=== PATIENT | female | born 1940 | race Caucasian/White ===

== ENCOUNTER 2018-01-29 12:41 | Inpatient (IN) ==
[2018-01-29] MEDS ORDERED: Acetaminophen 325 MG Tablet PO PRN (18:18)
--- NOTE | 2018-01-29 22:53 | P.HPIM ---
History of Present Illness Service: [facility] Hospitalists . Primary Care Physician: UNKNOWN Chief Complaint: Loss of vision in left eye History of Present Illness: Ms. Flores is a 77 y/o patient with a history of coronary artery disease, anxiety, atrial fibrillation, chronic obstructive pulmonary disease, chronic pain, congestive heart failure and carotid artery disease status post left carotid endarterectomy by Dr. Marin and Dr. Stoner in 2003 who presented to the ER complaining of left visual field loss. She was found to have left ICA occlusion and the case was discussed between the ER doctor and Dr. Morfin with vascular surgery who recommended admission to [facility] under the hospitalist service. The patient is seen in her hospital room. She reports only being able to see shadows with her left eye for 4 days. She reports that she was planning to see her last waxer as an outpatient about this but decided that she could not wait and went to the emergency room instead. She denies any headaches, eye pain , floaters, discharge from the eye, erythema, or edema. She has had no recent trauma to the eye. She has no unilateral weakness, dysphasia, or speech problems. She denies any recent fever, chills, nausea, vomiting, or diarrhea. The patient was requesting her narcotics and her nurse called me. I verified them on Eforcse and recognized the name of the prescribing physician as Arturo Gonzales MD, a hospice physician with [facility]. I contacted [facility] and verified that she is indeed a hospice patient who is on their service for advanced cardiovascular disease. They will be following up with her tomorrow. Inpatient Certification: I certify that the inpatient services were ordered in accordance with Medicare regulations governing the order. This includes certification that hospital inpatient services are reasonable and necessary and in the case of services not specified as inpatient-only under 42 CFR 419.22(n), that they are appropriately provided as inpatient services in accordance to with the 2-midnight benchmark under 43 CFR 412.3(e) Estimated Total Length of Stay (Days): 3 Plans for Post Hospital Care: Home Review of Systems All other systems reviewed negative except as stated in HPI [facility] - History History Provided By: Patient - Medical History Medical History: Medical History (Last Updated 01/30/18 @ 01:16 by ABENA Martinez) Advanced cardiac disease Atrial fibrillation Chronic obstructive pulmonary disease Coronary artery disease Anxiety Chronic pain Congestive heart failure - Surgical History Surgical History: Surgical History (Last Updated 01/30/18 @ 04:07 by ABENA Martinez) History of hysterectomy Onset Date: ~1988 History of left-sided carotid endarterectomy Onset Date: ~10/10/03 History of open heart surgery Onset Date: ~02/26/03 Hx of heart artery stent - Family History Family History: Family History (Last Updated 01/30/18 @ 04:10 by ABENA Martinez) Other No significant family history - Tobacco History Second Hand Smoke Exposure: Yes Tobacco Use In Past 30 Days: Yes Smoking Status: Current every day smoker Tobacco Type: Cigarettes - Alcohol History How Often Do You Have a Drink Containing Alcohol: Never - Substance Use History Substance History: No History of Abuse - Immunization History Hx Influenza Vaccine This Season: No Medications and Allergies Active Medications: Active Medications Acetaminophen (Tylenol) 650 mg PO Q4H PRN PRN Reason: Temp > 100.4 Al Hydroxide/Mg Hydroxide (Milk Of Nik Liq) 30 ml PO Q12H PRN PRN Reason: Mild Constipation Ondansetron HCl (Zofran Inj) 4 mg IV.PUSH Q6H PRN PRN Reason: NAUSEA OR VOMITING Allergies Allergy/AdvReac Type Severity Reaction Status Date / Time No Known Allergies Allergy Verified 01/29/18 13:05 Home Medications Medication Instructions Recorded Confirmed Type acetaminophen [Tylenol] 650 mg PO DIRECTED 01/29/18 01/29/18 History albuterol sulfate 1.25 mg INHALATION Q4-6H PRN 01/29/18 01/29/18 History aspirin [Aspir-81] 81 mg PO DAILY 01/29/18 01/29/18 History dextromethorphan-quinidine PO Q4HR PRN 01/29/18 History furosemide [Lasix] 20 mg PO DAILY 01/29/18 01/29/18 History gabapentin 300 mg PO BID 01/29/18 01/30/18 History ipratropium-albuterol 1 INHALATION Q8HR PRN 01/29/18 History lorazepam 1 mg PO Q2HR PRN 01/29/18 01/29/18 History mirtazapine 15 mg PO HS 01/29/18 01/29/18 History morphine 10 mg PO Q1-2H PRN 01/29/18 01/29/18 History nitroglycerin [Nitro-Dur] 1 patch TRANSDERMAL Q12H 01/29/18 01/29/18 History omeprazole 20 mg PO DAILY 01/29/18 01/29/18 History oxycodone 10 mg PO Q6H PRN 01/29/18 01/29/18 History potassium chloride 10 meq PO DAILY 01/29/18 01/29/18 History risperidone 0.5 mg PO HS 01/29/18 01/29/18 History Exam Vital signs: Intake & Output 01/29/18 01/29/18 01/30/18 06:59 18:59 06:59 Weight 41.2 kg Other: Weight On Admission 41.2 kg Narrative: GENERAL: This is a cachectic elderly female patient, in no apparent distress. SKIN: No rashes, ecchymoses or lesions. Cool and dry. HEAD: Atraumatic. Normocephalic. EYES: No scleral icterus. No injection or drainage. EOMI. Pupils equal and reactive to light. ENT: Nose without bleeding, purulent drainage. NECK: Trachea midline. No JVD. CARDIOVASCULAR: Regular rate and rhythm without murmurs, gallops, or rubs. RESPIRATORY: Clear to auscultation. Breath sounds equal bilaterally. No wheezes , rales, or rhonchi. GASTROINTESTINAL: Abdomen soft, non-tender, nondistended. No guarding. MUSCULOSKELETAL: Extremities without clubbing, cyanosis, or edema. No calf tenderness. NEUROLOGICAL: Awake and alert. Motor and sensory grossly within normal limits. Normal speech. . Caprini VTE Risk Assessment Caprini VTE Risk Assessment: Moderate/High Risk (score >= 2) Caprini Risk Assessment Model: Point Value = 1 Point Value = 2 Point Value = 3 Point Value = 5 Age 41-60 Minor surgery BMI > 25 kg/m2 Swollen legs Varicose veins or History of unexplained or recurrent spontaneous Oral contraceptives or hormone replacement Sepsis (< 1 month) Serious lung disease, including pneumonia (< 1 month) Abnormal pulmonary function Acute myocardial infarction Congestive heart failure (< 1 month) History of inflammatory bowel disease Medical patient at bed rest Age 61-74 Arthroscopic surgery Major open surgery (> 45 min) Laparoscopic surgery (> 45 min) Malignancy Confined to bed (> 72 hours) Immobilizing plaster cast Central venous access Age >= 75 History of VTE Family history of VTE Factor V Leiden Prothrombin 52502C Lupus anticoagulant Anticardiolipin antibodies Elevated serum homocysteine Heparin-induced thrombocytopenia Other congenital or acquired thrombophilia Stroke (< 1 month) Elective arthroplasty Hip, pelvis, or leg fracture Acute spinal cord injury (< 1 month) Prophylaxis Regimen: Total Risk Factor Score Risk Level Prophylaxis Regimen 0-1 Low Early ambulation 2 Moderate Order ONE of the following: *Sequential Compression Device (SCD) *Heparin 5000 units SQ BID 3-4 Higher Order ONE of the following medications: *Heparin 5000 units SQ TID *Enoxaparin/Lovenox 40 mg SQ daily (WT < 150 kg, CrCl > 30 mL/min) *Enoxaparin/Lovenox 30 mg SQ daily (WT < 150 kg, CrCl > 10-29 mL/min) *Enoxaparin/Lovenox 30 mg SQ BID (WT < 150 kg, CrCl > 30 mL/min) AND/OR *Sequential Compression Device (SCD) 5 or more Highest Order ONE of the following medications: *Heparin 5000 units SQ TID (Preferred with Epidurals) *Enoxaparin/Lovenox 40 mg SQ daily (WT < 150 kg, CrCl > 30 mL/min) *Enoxaparin/Lovenox 30 mg SQ daily (WT < 150 kg, CrCl > 10-29 mL/min) *Enoxaparin/Lovenox 30 mg SQ BID (WT < 150 kg, CrCl > 30 mL/min) AND *Sequential Compression Device (SCD) Assessment and Plan - Plan Ms. Flores is a 77 y/o patient with a history of coronary artery disease, anxiety, atrial fibrillation, chronic obstructive pulmonary disease, chronic pain, congestive heart failure and carotid artery disease status post left carotid endarterectomy by Dr. Marin and Dr. Stoner in 2003 who presented to the ER complaining of left visual field loss. She was found to have left ICA occlusion and the case was discussed between the ER doctor and Dr. Morfin with vascular surgery who recommended admission to [facility] under the hospitalist service. Left eye visual impairment with concern for CVA -symptoms have been ongoing for 4 days -Consult neurology -appreciate assistance -Perform nerve frequent neurochecks -2D echocardiogram -MRI of head to r/o infarct -check 2D echocardiogram to asses cardiac structure and function -Continuous cardiac telemetry to monitor for arrhythmia -Consider ophthalmology consult if MRI is negative Left carotid artery disease -Patient had a left carotid endarterectomy in 2003 with a bovine patch performed by Dr. Marin and Dr. Stoner -Neck CTA showed heavily calcified aortic arch with occlusion of the left common carotid and left subclavian origins. There was at least moderate to severe stenosis of the right brachiocephalic origin secondary to bulky calcified plaque. -Consult vascular surgery - case was reviewed by ER doctor with vascular surgeon Dr. Morfin who recommended admission - appreciate assistance CAD history of CHF -Patient on hospice for advanced heart disease -[facility] contacted and will follow up with the patient tomorrow -PRN nitroglycerin and resume home nitro patch -patient unsure of her EF Chronic pain -Resume home oxycodone -verify dosage and frequency the [place] drug monitoring program E-forcse Anxiety -Continue home lorazepam but at the lower as needed dose (0.5 mg) Incidental finding of thyroid nodules -may follow up with an composing room machinist apprentice as an outpatient if desires DVT prophylaxis -SCDs Code Status: DNR - patient confirms desire for DNR code status with me Discussed Condition With: Patient, RN, and Dr. Brooks H&P: Quality - VTE Deep Vein Thrombosis/Pulmonary Embolism Present on Admission: No
[2018-01-29] MEDS: LORazepam 0.5 MG Tablet PO PRN (23:09)
[2018-01-30] MEDS ORDERED: Bisacodyl 10 MG Supp RECTAL PRN (01:11)
[2018-01-30] MEDS ORDERED: guaiFENesin/Dextromethorphan 200 MG/20 MG 10 ML UDC PO PRN (01:12)
[2018-01-30] MEDS: LORazepam 0.5 MG Tablet PO PRN ×2 (08:46→21:21)
[2018-01-30] MEDS: Pantoprazole Sodium 20 MG DR Tablet PO SCH (08:46)
[2018-01-30] MEDS: Potassium Chloride 10 MEQ ER Capsule PO SCH (08:47)
[2018-01-30] MEDS: Gabapentin 300 MG Capsule PO SCH ×2 (08:47→21:21)
[2018-01-30] MEDS: Furosemide 20 MG Tablet PO SCH (08:47)
[2018-01-30 12:12] LABS: Vitamin B12 599 pg/mL (193-986)
--- NOTE | 2018-01-30 12:57 | P.PNIM ---
Subjective Interval history: Follow up left eye vision loss Patient is sitting up in bed. She denies any upper or lower extremity weakness/ numbness/tingling. She states she can only see shadows out of her left eye. No speech or swallow difficulty. MRI brain currently pending. Physical Exam Vital signs: Last Vital Signs Temp 98 F 01/30/18 08:00 Pulse 66 01/30/18 08:00 Resp 16 01/30/18 08:00 BP 128/72 01/30/18 08:00 Pulse Ox 96 01/30/18 08:00 Intake & Output 01/28/18 01/29/18 01/30/18 01/31/18 06:59 06:59 06:59 06:59 Intake Total 450 / 450 Balance 450 / 450 Weight 42.7 kg Narrative: GENERAL: This is a cachectic elderly female patient, in no apparent distress. SKIN: No rashes, ecchymoses or lesions. Cool and dry. HEAD: Atraumatic. Normocephalic. EYES: No scleral icterus. No injection or drainage. EOMI. Pupils equal and reactive to light. ENT: Nose without bleeding, purulent drainage. NECK: Trachea midline. No JVD. CARDIOVASCULAR: Regular rate and rhythm without murmurs, gallops, or rubs. RESPIRATORY: Clear to auscultation. Breath sounds equal bilaterally. No wheezes , rales, or rhonchi. GASTROINTESTINAL: Abdomen soft, non-tender, nondistended. No guarding. MUSCULOSKELETAL: Extremities without clubbing, cyanosis, or edema. No calf tenderness. NEUROLOGICAL: Awake and alert. Motor and sensory grossly within normal limits. Normal speech. . Assessment and Plan Plan Ms. Flores is a 77 y/o patient with a history of coronary artery disease, anxiety, atrial fibrillation, chronic obstructive pulmonary disease, chronic pain, congestive heart failure and carotid artery disease status post left carotid endarterectomy by Dr. Marin and Dr. Stoner in 2003 who presented to the ER complaining of left visual field loss. She was found to have left ICA occlusion and the case was discussed between the ER doctor and Dr. Morfin with vascular surgery who recommended admission to [facility] under the hospitalist service. Left eye visual impairment with concern for CVA - evaluated 01/30/18, unchanged -symptoms have been ongoing for 4 days -Neurology consulted-appreciate assistance -Perform nerve frequent neurochecks -MRI of head to r/o infarct -check 2D echocardiogram to asses cardiac structure and function -Continuous cardiac telemetry to monitor for arrhythmia -Consider ophthalmology consult if MRI is negative, MRI head pending -CT head -> senescent changes w/o acute intracranial abnormality Left carotid artery disease - evaluated 01/30/18 -Patient had a left carotid endarterectomy in 2003 with a bovine patch performed by Dr. Marin and Dr. Stoner -Neck CTA showed heavily calcified aortic arch with occlusion of the left common carotid and left subclavian origins. There was at least moderate to severe stenosis of the right brachiocephalic origin secondary to bulky calcified plaque. -Consult vascular surgery - case was reviewed by ER doctor with vascular surgeon Dr. Morfin who recommended admission - appreciate assistance CAD History of CHF, unknown dysfunction or EF - evaluated 01/30/18, no acute exacerbation at present time -Patient on hospice for advanced heart disease -[facility] contacted and will follow up with the patient -PRN nitroglycerin and resume home nitro patch -patient unsure of her EF Chronic pain - evaluated 01/30/18, stable -Resume home oxycodone -verify dosage and frequency the [place] drug monitoring program E-forcse Anxiety - 01/30/18, stable -Continue home lorazepam but at the lower as needed dose (0.5 mg) Incidental finding of thyroid nodules -may follow up with an log data technician as an outpatient if desires MDM: self Code: DNR GI ppx: PPI DVT ppx: Eliquis BID Progress Note: Quality VTE Deep Vein Thrombosis/Pulmonary Embolism Present on Admission: No
--- NOTE | 2018-01-30 13:32 | P.CONVS ---
History of Present Illness Service: Vascular surgery Consult date: 01/30/18 Primary Care Provider: UNKNOWN Chief Complaint: Loss of vision in left eye History of Present Illness: 77-year-old female with a past medical history of left carotid artery stenosis status post left carotid artery endarterectomy who presents with a chief complaint of left eye blurry vision. I was contacted by the emergency room physician who was concerned for left eye amaurosis fugax and a possible TIA versus acute stroke. It was also unclear if the patient is a hospice patient or not. The patient currently denies any vision loss. She denies any episodes of amaurosis fugax. She denies any TIA symptoms. Review of Systems All other systems reviewed negative except as stated in HPI [facility] - History History Provided By: Patient - Medical History Medical History: Medical History (Last Updated 01/30/18 @ 04:17 by ABENA Martinez) Atrial fibrillation Chronic obstructive pulmonary disease Coronary artery disease Anxiety Chronic pain Congestive heart failure - Surgical History Surgical History: Surgical History (Last Updated 01/30/18 @ 04:07 by ABENA Martinez) History of hysterectomy Onset Date: ~1988 History of left-sided carotid endarterectomy Onset Date: ~10/10/03 History of open heart surgery Onset Date: ~02/26/03 Hx of heart artery stent - Family History Family History: Family History (Last Updated 01/30/18 @ 04:10 by ABENA Martinez) Other No significant family history - Tobacco History Second Hand Smoke Exposure: Yes Tobacco Use In Past 30 Days: Yes Smoking Status: Current every day smoker Tobacco Type: Cigarettes - Alcohol History How Often Do You Have a Drink Containing Alcohol: Never - Substance Use History Substance History: No History of Abuse - Immunization History Hx Influenza Vaccine This Season: No Medications and Allergies Active Medications: Active Medications Acetaminophen (Tylenol) 650 mg PO Q4H PRN PRN Reason: Temp > 100.4 Al Hydroxide/Mg Hydroxide (Milk Of Magnesia Liq) 30 ml PO Q12H PRN PRN Reason: Mild Constipation Albuterol (Duoneb Neb (Prn)) 1 ampul NEB Q2HR NEB PRN PRN Reason: SHORTNESS OF BREATH/WHEEZING Apixaban (Eliquis) 2.5 mg PO BID [facility] Last Admin: 01/30/18 12:47 Dose: 2.5 mg Aspirin (Ecotrin) 81 mg PO DAILY [facility] Last Admin: 01/30/18 08:53 Dose: 81 mg Bisacodyl (Dulcolax Supp) 10 mg RECTAL DAILY PRN PRN Reason: severe constipation Furosemide (Lasix) 20 mg PO DAILY [facility] Last Admin: 01/30/18 08:47 Dose: 20 mg Gabapentin (Neurontin) 300 mg PO BID [facility] Last Admin: 01/30/18 08:47 Dose: 300 mg Guaifenesin/Dextromethorphan (Robitussin Dm Liq) 10 ml PO Q4H PRN PRN Reason: COUGH Lorazepam (Ativan) 0.5 mg PO Q4H PRN PRN Reason: ANXIETY Last Admin: 01/30/18 08:46 Dose: 0.5 mg Mirtazapine (Remeron) 15 mg PO [facility] Nitroglycerin (Nitro-Dur 0.4 Mg Patch.24 Hr) 1 patch T-DERMAL DAILY [facility] Last Admin: 01/30/18 08:53 Dose: 1 patch Nitroglycerin (Nitrostat Sl) 0.4 mg SL Q5M PRN PRN Reason: CHEST PAIN Ondansetron HCl (Zofran Inj) 4 mg IV.PUSH Q6H PRN PRN Reason: NAUSEA OR VOMITING Oxycodone HCl (Roxicodone) 10 mg PO Q6H PRN PRN Reason: PAIN SCALE 1 TO 10 Last Admin: 01/29/18 23:09 Dose: 10 mg Pantoprazole Sodium (Protonix) 20 mg PO DAILY [facility] Last Admin: 01/30/18 08:46 Dose: 20 mg Potassium Chloride (Kcl) 10 meq PO DAILY [facility] Last Admin: 01/30/18 08:47 Dose: 10 meq Risperidone (Risperdal) 0.5 mg PO [facility] Allergies Allergy/AdvReac Type Severity Reaction Status Date / Time No Known Allergies Allergy Verified 01/29/18 13:05 Home Medications Medication Instructions Recorded Confirmed Type acetaminophen [Tylenol] 650 mg PO DIRECTED 01/29/18 01/29/18 History albuterol sulfate 1.25 mg INHALATION Q4-6H PRN 01/29/18 01/29/18 History aspirin [Aspir-81] 81 mg PO DAILY 01/29/18 01/29/18 History dextromethorphan-quinidine PO Q4HR PRN 01/29/18 History furosemide [Lasix] 20 mg PO DAILY 01/29/18 01/29/18 History gabapentin 300 mg PO BID 01/29/18 01/30/18 History ipratropium-albuterol 1 INHALATION Q8HR PRN 01/29/18 History lorazepam 1 mg PO Q2HR PRN 01/29/18 01/29/18 History mirtazapine 15 mg PO HS 01/29/18 01/29/18 History morphine 10 mg PO Q1-2H PRN 01/29/18 01/29/18 History nitroglycerin [Nitro-Dur] 1 patch TRANSDERMAL Q12H 01/29/18 01/29/18 History omeprazole 20 mg PO DAILY 01/29/18 01/29/18 History oxycodone 10 mg PO Q6H PRN 01/29/18 01/29/18 History potassium chloride 10 meq PO DAILY 01/29/18 01/29/18 History risperidone 0.5 mg PO HS 01/29/18 01/29/18 History Physical Exam Vital Signs / I&O: Vital Signs 01/29/18 19:30 01/29/18 23:50 01/30/18 00:00 Temperature 98.5 F 97.8 F Pulse Rate 68 66 Respiratory Rate 18 18 15 Blood Pressure 133/70 97/63 L Pulse Oximetry 95 95 01/30/18 04:00 01/30/18 08:00 Temperature 97.6 F 98 F Pulse Rate 78 66 Respiratory Rate 18 16 Blood Pressure 102/57 L 128/72 Pulse Oximetry 94 L 96 Intake & Output 01/29/18 01/30/18 01/30/18 18:59 06:59 18:59 Intake Total 450 / 450 Balance 450 / 450 Weight 42.7 kg Intake: Oral 450 / 450 Other: # Voids 1 Weight On Admission 41.2 kg Neuro: No neurological deficits identified bilaterally. Cranial nerves X to XII are intact. HEENT: Normocephalic atraumatic Neck: Supple Heart: S1-S2 Lungs: Clear bilaterally Abdomen: Soft nontender nondistended Vascular: Left radial, ulnar biphasic signal Laboratory Results - last 24 hr 01/30/18 01/30/18 01/30/18 11:09 11:09 11:09 ESR 45 H C-Reactive Protein 1.48 H Vitamin B12 599 Rheumatoid Factor Scrn Negative Rheumatoid Factor Titer Not Reportable Assessment and Plan - Plan Left common carotid artery occlusion Questionable left carotid stump syndrome The patient clinical presentation is not consistent with amaurosis fugax. Ophthalmology evaluation is pending. workup for acute ischemic stroke and neurological evaluation is pending We will obtain a carotid duplex ultrasound to evaluate the direction of blood flow in the ICA (antegrade versus retrograde) Left subclavian artery occlusion Asymptomatic No vascular surgery is required at this time I has been confirmed confirmed that the patient is a hospice patient due to cardiac disease. Most likely she will not tolerate any vascular procedure if indicated. Thank you for allowing me to participate in the patient care, if you have any questions please call my cell phone Sourav Morfin MD [facility] [phone]
--- NOTE | 2018-01-30 13:50 | MB ---
cc: Caleb Carrizales MD DATE: 01/30/2018 HISTORY OF PRESENT ILLNESS: A 77-year-old, right-handed woman with hypertension, CABG, on a baby aspirin a day. She is apparently on hospice for cardiovascular disease. She has a history of carotid endarterectomy. About 4 days ago, she had vision loss in the left eye. She denies any dementia. She has had carotid stents in the past. She said she has had a mild headache only. No temporal tenderness. MEDICATIONS AT HOME: 1. Tylenol. 2. Aspirin 81. 3. Lasix. 4. Gabapentin 200 at bedtime. 5. Lorazepam 1 mg p.r.n. 6. Mirtazapine. 7. Morphine p.r.n. 8. Nitroglycerin. 9. Omeprazole. 10. Oxycodone p.r.n. 11. Risperdal 0.25 at bedtime. ALLERGIES: NO KNOWN DRUG ALLERGIES. REVIEW OF SYSTEMS: She denies any diabetes, hypercholesterolemia, known atrial fibrillation, although apparently has a history of atrial fibrillation. No history of renal, hepatic, pulmonary disease, thyroid disease, lupus, ulcer, cancer, seizure, stroke. SOCIAL HISTORY: She is a smoker. I have asked her to quit. She is not a drinker. She lives by herself, she tells me. FAMILY HISTORY: Negative cancer, seizure, stroke. PAST MEDICAL HISTORY: Atrial fibrillation, COPD, anxiety, CHF, left carotid endarterectomy in 2003. PHYSICAL EXAMINATION: VITAL SIGNS: Sinus rhythm, afebrile, 102/57, 18, 78. NECK: There are no carotid bruits. HEART: Regular rate and rhythm. I did not detect a murmur. NEUROLOGIC: She can just see shadows in the left eye. She appears to have cataracts bilaterally. Both pupils are equal. Visual [place] are full, right eye. Extraocular movements intact without nystagmus. Temples are nontender bilaterally. Face is symmetric with normal sensation. Tongue is midline. No drift. Normal strength in the upper and lower extremities bilaterally. Toes are downgoing bilaterally. DTRs are 2+ and symmetric throughout. Pinprick is intact throughout. She is not ataxic on [id number]. Speech is fluent. She is not aphasic. She knows the month and the year. She knows she is in the hospital. Gait is steady. LABORATORY DATA: CBC is normal. Coags normal. Basic metabolic profile, creatinine 1.1, otherwise normal. Glucose 107. LFTs normal. CPK and troponin negative. She has a history of a UTI in 2017. IMAGING DATA: She had a CAT scan of her brain done that was read as negative. On review of those films, some white matter changes bifrontally. Nothing in the occipital lobes is seen. Orbits appear normal. CTA of the pauma of [place] was performed, a 6 mm right supraclinoid aneurysm, small left internal carotid artery, probably from retrograde flow due to common carotid artery occlusion. On review of the films, she has good flow in the middle cerebral and anterior cerebral arteries bilaterally and the posterior cerebral arteries and the vertebral basilar system. It looks like she does have some flow in the carotid on the left side somehow reconstituted with absent flow in the neck on the CTA of the neck. The CTA of the neck reports occlusion of the left common carotid artery and left subclavian origins, moderate to severe stenosis of the right brachiocephalic, reconstitution of the left carotid and the left carotid bulb via contralateral retrograde flow, reconstitution of proximal left subclavian via a small left vertebral. Internal carotids themselves are normal. Left-sided thyroid nodules. 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 Whether the left common carotid artery is acutely occluded or not is unclear. Certainly, with the atrial fibrillation, I would recommend her being on Eliquis. We will check a sedimentation rate on her. With the vision loss, I would recommend having her be seen by ophthalmology to make sure she does not have any glaucoma or severe cataract in that eye as there appears to be some cataracts. An echocardiogram has been done. She actually looks quite well for hospice and very highly functioning. We will check an MRI of her brain and just a couple of blood tests. MD TYREL Carcamo/sathish , 10:39 AM , 10:47 AM
--- NOTE | 2018-01-30 14:45 | MR ---
EXAM DATE: 01/30/2018 2:40 PM EST AGE/SEX: 77 years / Female INDICATIONS: . Vision problems. Amarousis fugax. CLINICAL DATA: This is the patient's initial encounter. Patient reports that signs and symptoms have been present for 2 days and indicates a pain score of 0/10. MEDICAL/SURGICAL HISTORY: Chronic obstructive pulmonary disease. Congestive heart failure. Kira ve replacement. Afib. Carotid endarterectomy. CABG. COMPARISON: DL, CT HEAD W/O CONTRAST, 01/29/2018. . TECHNIQUE: Multiplanar, multisequence examination of the brain was performed without contrast. FINDINGS: Cerebrum: Mild to moderate diffuse cerebral atrophy. The ventricles are normal for age. No evidence of midline shift, mass lesion, hemorrhage or acute infarction. No extraaxial fluid collections are seen. The pituitary gland and suprasellar cistern are normal in configuration. White Matter: Moderate periventricular and focal deep white matter T2 prolongation. Posterior Fossa: The cerebellum and brainstem are intact. The 4th ventricle is midline. The cerebel lopontine angle is unremarkable. The cerebellar tonsils are normal in position. Diffusion Imaging: No focal areas of restricted diffusion are seen. No evidence of acute infarction . Extracranial: The visualized portions of the orbits and paranasal sinuses are unremarkable. CONCLUSION: 1. Senescent changes with mild to moderate periventricular ischemic white matter demyelination. 2. No acute abnormality. Specifically, no evidence for acute infarction or hemorrhage. Electronically signed by: José Miguel Parks MD 01/30/2018 2:43 PM EST
--- NOTE | 2018-01-30 15:10 | ECHRPT ---
Indication: [email or web address] CONCLUSIONS Normal left ventricular size. Wall thickness is normal. The left ventricular systolic function is normal with an estimated ejection fraction in the range of 60-65%. Bovine valve mitral valve. Mean gradient 13 mmhg.Aortic valve sclerosis is present. There is mild tricuspid valve regurgitation. The estimated pulmonary arterial pressure is 34 mmHg. BP: / HR: Rhythm: MEASUREMENTS (Male / Female) Normal Values Technical Quality: 2D ECHO LV Diastolic Diameter PLAX 3.3 cm 4.2 - 5.9 / 3.9 - 5.3 cm LV Systolic Diameter PLAX 2.3 cm IVS Diastolic Thickness 1.2 cm 0.6 - 1.0 / 0.6 - 0.9 cm LVPW Diastolic Thickness 1.1 cm 0.6 - 1.0 / 0.6 - 0.9 cm LV Relative Wall Thickness 0.7 RV Internal Dim ED PLAX 2.7 cm LVOT Diameter 1.5 cm Aortic Root Diameter 2.0 cm LA Systolic Diameter LX 4.3 cm 3.0 - 4.0 / 2.7 - 3.8 cm LV Ejection Fraction MOD BP 57.3 % >= 55 % LV Ejection Fraction MOD 4C 61.1 % LV Ejection Fraction 4C AL 59.2 % LV Ejection Fraction MOD 2C 53.5 % LV Ejection Fraction 2C AL 51.8 % M-MODE Aortic Root Diameter MM 1.9 cm LA Systolic Diameter MM 3.7 cm LA Ao Ratio MM 1.9 AV Cusp Separation MM 1.3 cm DOPPLER AV Peak Velocity 228.3 cm/s AV Peak Gradient 20.9 mmHg AV Mean Gradient 11.0 mmHg AV Velocity Time Integral 44.3 cm LVOT Peak Velocity 102.0 cm/s LVOT Peak Gradient 4.2 mmHg LVOT Velocity Time Integral 21.8 cm AV Area Cont Eq vti 0.9 cm AV Area Cont Eq pk 0.8 cm MV Peak Velocity 159.0 cm/s MV Peak Gradient 10.1 mmHg MV Mean Velocity 96.8 cm/s MV Mean Gradient 4.0 mmHg Mitral E Point Velocity 108.0 cm/s Mitral A Point Velocity 130.0 cm/s Mitral E to A Ratio 0.8 LV E' Lateral Velocity 4.4 cm/s Mitral E to LV E' Lateral Ratio 24.6 LV E' Septal Velocity 7.9 cm/s Mitral E to LV E' Septal Ratio 13.7 TR Peak Velocity 242.0 cm/s TR Peak Gradient 23.4 mmHg Right Atrial Pressure 10.0 mmHg Pulmonary Artery Systolic Pressu 33.4 mmHg Right Ventricular Systolic Press 33.4 mmHg PV Peak Velocity 119.0 cm/s PV Peak Gradient 5.7 mmHg FINDINGS LEFT VENTRICLE Normal left ventricular size. Wall thickness is normal. The left ventricular systolic function is normal with an estimated ejection fraction in the range of 60-65%. RIGHT VENTRICLE Normal right ventricular size and systolic function. LEFT ATRIUM The left atrial size is normal. RIGHT ATRIUM The right atrial size is normal. ATRIAL SEPTUM Normal atrial septal thickness without atrial level shunting by limited color doppler interrogation. AORTA The aortic root and proximal ascending aorta are normal in size on limited imaging. MITRAL VALVE Bovine valve mitral valve. Mean gradient 4 mmhg. AORTIC VALVE Aortic valve sclerosis is present. TRICUSPID VALVE There is mild tricuspid valve regurgitation. The estimated pulmonary arterial pressure is 34 mmHg. PULMONARY VALVE No pulmonary valve regurgitation or stenosis. VESSELS The inferior vena cava is normal in size. PERICARDIUM No pericardial effusion. Francis Donis MD, FACC, FSCAI (Electronically Signed) Final Date:30 January 2018 15:08
--- NOTE | 2018-01-30 17:11 | US ---
EXAM DATE: 01/30/2018 5:06 PM EST AGE/SEX: 77 years / Female INDICATIONS: Common carotid artery occlusion seen on other imaging. CLINICAL DATA: This is the patient's initial encounter. Patient reports that signs and symptoms have been present for > 1 year and indicates a pain score of 0/10. MEDICAL/SURGICAL HISTORY: Chronic obstructive pulmonary disease. Congestive heart failure. Atr ial fibrillation. Coronary artery disease. Hysterectomy. Left side carotid surgery. Open heart surge ry. Heart artery stent. COMPARISON: [facility], CTA NECK W CONTRAST W 3D, 01/29/2018. . VELOCITY PARAMETERS: ICA/CCA Ratio: Right 1.4 , Left 3.6 ICA: Right 116 cm/sec, Left 34 cm/sec CCA: Right 82 cm/sec, Left 9.3 cm/sec ECA: Right 124 cm/sec, Left 52 cm/sec Vertebral: Right 152 cm/sec antegrade, Left 29 cm/sec retrograde FINDINGS: Right Carotid: Bulky noncalcified plaque..The waveforms are within normal limits. Left Carotid: Common carotid artery is occluded with reversal of flow in the internal carotid artery . Bulky mixed plaque. The waveforms are within normal limits. Other: None. CONCLUSION: 1. Right Internal Carotid Artery: Findings indicate <50% stenosis. 2. Left Internal Carotid Artery: Common carotid artery is occluded with retrograde flow in the inter nal carotid artery. Findings indicate <50% stenosis. 3. Reversal of flow in the left vertebral artery consistent with occlusion of the left subclavian ar krupa origin noted on CT exam. Electronically signed by: José Miguel Parks MD 01/30/2018 5:10 PM EST
[2018-01-30] MEDS: Mirtazapine 15 MG Tablet PO SCH (21:21)
[2018-01-31 05:07] LABS: Baso # (Auto) 0.1 th/mm3 (0.0-0.2); Baso % (Auto) 0.7 % (0.0-2.0); Eos # (Auto) 0.4 th/mm3 (0.0-0.4); Eos % (Auto) 3.1 % (0.0-4.0); Hematocrit 38.6 % (35.0-46.0); Lymph # (Auto) 2.3 th/mm3 (1.0-4.8); Lymph % (Auto) 17.8 % (9.0-44.0); Mean Corpuscular HGB Conc 33.6 % (32.0-36.0); Mean Corpuscular Hemoglobin 29.5 pg (27.0-34.0); Mean Corpuscular Volume 87.9 fL (80.0-100.0); Mean Platelet Volume 7.5 fL (7.0-11.0); Mono % (Auto) 7.6 % (0.0-8.0); Neut # (Auto) 9.1 th/mm3 (1.8-7.7); Neut % (Auto) 70.8 % (16.0-70.0); Platelet Count 304 th/mm3 (150-450); Red Cell Distribution Width 14.9 % (11.6-17.2); White Blood Count 12.8 th/mm3 (4.0-11.0)
[2018-01-31 05:34] LABS: Calcium 8.3 mg/dL (8.5-10.1); Carbon Dioxide 31.1 meq/L (21.0-32.0); Potassium 4.1 meq/L (3.5-5.1)
[2018-01-31 05:36] LABS: Chol/HDL Ratio 6.14 Ratio; HDL Cholesterol 41.5 mg/dL (40.0-60.0)
--- NOTE | 2018-01-31 08:17 | P.PNNEU ---
Subjective Active Medications: Active Medications Acetaminophen (Tylenol) 650 mg PO Q4H PRN PRN Reason: Temp > 100.4 Al Hydroxide/Mg Hydroxide (Milk Of Magnesia Liq) 30 ml PO Q12H PRN PRN Reason: Mild Constipation Albuterol (Duoneb Neb (Prn)) 1 ampul NEB Q2HR NEB PRN PRN Reason: SHORTNESS OF BREATH/WHEEZING Apixaban (Eliquis) 2.5 mg PO BID [facility] Last Admin: 01/30/18 21:21 Dose: 2.5 mg Aspirin (Ecotrin) 81 mg PO DAILY [facility] Last Admin: 01/30/18 08:53 Dose: 81 mg Bisacodyl (Dulcolax Supp) 10 mg RECTAL DAILY PRN PRN Reason: severe constipation Furosemide (Lasix) 20 mg PO DAILY [facility] Last Admin: 01/30/18 08:47 Dose: 20 mg Gabapentin (Neurontin) 300 mg PO BID [facility] Last Admin: 01/30/18 21:21 Dose: 300 mg Guaifenesin/Dextromethorphan (Robitussin Dm Liq) 10 ml PO Q4H PRN PRN Reason: COUGH Lorazepam (Ativan) 0.5 mg PO Q4H PRN PRN Reason: ANXIETY Last Admin: 01/30/18 21:21 Dose: 0.5 mg Mirtazapine (Remeron) 15 mg PO HS [facility] Last Admin: 01/30/18 21:21 Dose: 15 mg Nitroglycerin (Nitro-Dur 0.4 Mg Patch.24 Hr) 1 patch T-DERMAL DAILY [facility] Last Admin: 01/30/18 08:53 Dose: 1 patch Nitroglycerin (Nitrostat Sl) 0.4 mg SL Q5M PRN PRN Reason: CHEST PAIN Ondansetron HCl (Zofran Inj) 4 mg IV.PUSH Q6H PRN PRN Reason: NAUSEA OR VOMITING Oxycodone HCl (Roxicodone) 10 mg PO Q6H PRN PRN Reason: PAIN SCALE 1 TO 10 Last Admin: 01/30/18 15:37 Dose: 10 mg Pantoprazole Sodium (Protonix) 20 mg PO DAILY [facility] Last Admin: 01/30/18 08:46 Dose: 20 mg Potassium Chloride (Kcl) 10 meq PO DAILY [facility] Last Admin: 01/30/18 08:47 Dose: 10 meq Risperidone (Risperdal) 0.5 mg PO HS [facility] Last Admin: 01/30/18 21:21 Dose: 0.5 mg Allergies/Adverse Reactions: Allergies Allergy/AdvReac Type Severity Reaction Status Date / Time No Known Allergies Allergy Verified 01/29/18 13:05 Physical Exam Vital signs: Vital Signs 01/30/18 12:00 01/30/18 16:00 01/30/18 20:00 Temperature 98.4 F 98 F 97.8 F Pulse Rate 72 70 79 Respiratory Rate 18 16 17 Blood Pressure 122/67 133/82 102/59 L Pulse Oximetry 98 95 95 01/31/18 00:00 01/31/18 04:00 Temperature 97.9 F 98.1 F Pulse Rate 65 62 Respiratory Rate 17 17 Blood Pressure 100/58 L 123/67 Pulse Oximetry 94 L 95 Intake & Output 01/30/18 01/31/18 01/31/18 18:59 06:59 18:59 Weight 41.8 kg Other: # Voids 4 # Urine Diapers 3 Date of Last Bowel Movement 01/30/18 Narrative: can see shadows os counts fingers od ow nl exam Objective Laboratory Results - last 24 hr 01/30/18 01/30/18 01/30/18 11:09 11:09 11:09 WBC RBC Hgb Hct MCV MCH MCHC RDW Plt Count MPV Neut % (Auto) Lymph % (Auto) [place] % (Auto) Eos % (Auto) Baso % (Auto) Neut # (Auto) Lymph # (Auto) [place] # (Auto) Eos # (Auto) Baso # (Auto) WBC Differential Differential Comment ESR 45 H Sodium Potassium Chloride Carbon Dioxide Anion Gap BUN Creatinine Estimated GFR Random Glucose Calcium C-Reactive Protein 1.48 H Triglycerides Cholesterol LDL Cholesterol, Calc HDL Cholesterol Cholesterol/HDL Ratio Vitamin B12 599 Rheumatoid Factor Scrn Negative Rheumatoid Factor Titer Not Reportable 01/31/18 01/31/18 04:30 04:30 WBC 12.8 H RBC 4.40 Hgb 13.0 Hct 38.6 MCV 87.9 MCH 29.5 MCHC 33.6 RDW 14.9 Plt Count 304 MPV 7.5 Neut % (Auto) 70.8 H Lymph % (Auto) 17.8 [place] % (Auto) 7.6 Eos % (Auto) 3.1 Baso % (Auto) 0.7 Neut # (Auto) 9.1 H Lymph # (Auto) 2.3 [place] # (Auto) 1.0 H Eos # (Auto) 0.4 Baso # (Auto) 0.1 WBC Differential . Differential Comment Auto diff final ESR Sodium 137 Potassium 4.1 D Chloride 101 Carbon Dioxide 31.1 Anion Gap 5 BUN 24 H Creatinine 1.32 H Estimated GFR 39 L Random Glucose 85 Calcium 8.3 L C-Reactive Protein Triglycerides 149 Cholesterol 255 H LDL Cholesterol, Calc 184 H HDL Cholesterol 41.5 Cholesterol/HDL Ratio 6.14 Vitamin B12 Rheumatoid Factor Scrn Rheumatoid Factor Titer Review/Management - Review/Management Plan: imp esr 45 but crp only min elevated ldl 184 mri brain neg echo bovine MV on eliquis 2.5 for wt if med team thinks can tolerate 5mg bid i would have them change to that can dc when optho clears needs statin started
[2018-01-31] MEDS: Potassium Chloride 10 MEQ ER Capsule PO SCH (09:10)
[2018-01-31] MEDS: Furosemide 20 MG Tablet PO SCH (09:10)
[2018-01-31] MEDS: Gabapentin 300 MG Capsule PO SCH ×2 (09:10→21:36)
[2018-01-31] MEDS: Pantoprazole Sodium 20 MG DR Tablet PO SCH (09:10)
[2018-01-31 11:19] LABS: Anti-Nuclear Antibody Screen Pos (Neg)
[2018-01-31] MEDS: LORazepam 0.5 MG Tablet PO PRN ×2 (11:21→21:36)
--- NOTE | 2018-01-31 11:31 | P.PN ---
Subjective Interval history: Follow-up visit for left eye vision loss, and carotid stenosis. Patient seen ambulating in her room and in the alas, requesting to go home. She does report that her left eye vision has improved and is now able to see. She does report that the right eye has now been giving her trouble as it has been having to "make up for the other eye". Denies any dizziness, lightheadedness, shortness of breath, cough, chest pain, fevers or chills. Staff report patient has been smoking in her room, offered nicotine patch which she is agreeable to try. Discussed ophthalmology consult as well as recommendations of Pierre per neurology. Physical Exam Vital signs: Vital Signs 01/30/18 12:00 01/30/18 16:00 01/30/18 20:00 Temperature 98.4 F 98 F 97.8 F Pulse Rate 72 70 79 Respiratory Rate 18 16 17 Blood Pressure 122/67 133/82 102/59 L Pulse Oximetry 98 95 95 01/31/18 00:00 01/31/18 04:00 01/31/18 10:00 Temperature 97.9 F 98.1 F 97.6 F Pulse Rate 65 62 79 Respiratory Rate 17 17 16 Blood Pressure 100/58 L 123/67 130/90 Pulse Oximetry 94 L 95 95 Intake & Output 01/30/18 01/31/18 01/31/18 18:59 06:59 18:59 Weight 41.8 kg Other: # Voids 4 # Urine Diapers 3 Date of Last Bowel Movement 01/30/18 Narrative: GENERAL: Thin, well-developed female in no acute distress. SKIN: Cool and dry. HEAD: Atraumatic. Normocephalic. EYES: No scleral icterus. No injection or drainage. Pupils equal/round and reactive. ENT: Nose without bleeding, purulent drainage. NECK: Trachea midline. CARDIOVASCULAR: Regular rate and rhythm without murmurs, gallops, or rubs. RESPIRATORY: Clear to auscultation. Breath sounds equal bilaterally. No wheezes , rales, or rhonchi. GASTROINTESTINAL: Abdomen soft, non-tender, nondistended. MUSCULOSKELETAL: Extremities without clubbing, cyanosis, or edema. NEUROLOGICAL: Awake and alert. Motor and sensory grossly within normal limits. Normal speech. Results - Labs CBC & Chem 7: 01/31/18 04:30 01/31/18 04:30 Laboratory Results - last 24 hr 01/30/18 01/30/18 01/30/18 11:09 11:09 11:09 WBC RBC Hgb Hct MCV MCH MCHC RDW Plt Count MPV Neut % (Auto) Lymph % (Auto) [place] % (Auto) Eos % (Auto) Baso % (Auto) Neut # (Auto) Lymph # (Auto) [place] # (Auto) Eos # (Auto) Baso # (Auto) WBC Differential Differential Comment ESR 45 H Sodium Potassium Chloride Carbon Dioxide Anion Gap BUN Creatinine Estimated GFR Random Glucose Calcium C-Reactive Protein Triglycerides Cholesterol LDL Cholesterol, Calc HDL Cholesterol Cholesterol/HDL Ratio Vitamin B12 599 Rheumatoid Factor Scrn Negative Rheumatoid Factor Titer Not Reportable ARGENIS Screen Pos H RPR Nonreactive 01/30/18 01/31/18 01/31/18 11:09 04:30 04:30 WBC 12.8 H RBC 4.40 Hgb 13.0 Hct 38.6 MCV 87.9 MCH 29.5 MCHC 33.6 RDW 14.9 Plt Count 304 MPV 7.5 Neut % (Auto) 70.8 H Lymph % (Auto) 17.8 [place] % (Auto) 7.6 Eos % (Auto) 3.1 Baso % (Auto) 0.7 Neut # (Auto) 9.1 H Lymph # (Auto) 2.3 [place] # (Auto) 1.0 H Eos # (Auto) 0.4 Baso # (Auto) 0.1 WBC Differential . Differential Comment Auto diff final ESR Sodium 137 Potassium 4.1 D Chloride 101 Carbon Dioxide 31.1 Anion Gap 5 BUN 24 H Creatinine 1.32 H Estimated GFR 39 L Random Glucose 85 Calcium 8.3 L C-Reactive Protein 1.48 H Triglycerides 149 Cholesterol 255 H LDL Cholesterol, Calc 184 H HDL Cholesterol 41.5 Cholesterol/HDL Ratio 6.14 Vitamin B12 Rheumatoid Factor Scrn Rheumatoid Factor Titer ARGENIS Screen RPR - Imaging Impressions Carotid Doppler Study 01/30/18 00:00 CONCLUSION: 1. Right Internal Carotid Artery: Findings indicate <50% stenosis. 2. Left Internal Carotid Artery: Common carotid artery is occluded with retrograde flow in the internal carotid artery. Findings indicate <50% stenosis. 3. Reversal of flow in the left vertebral artery consistent with occlusion of the left subclavian artery origin noted on CT exam. Head MRI 01/30/18 00:00 CONCLUSION: 1. Senescent changes with mild to moderate periventricular ischemic white matter demyelination. 2. No acute abnormality. Specifically, no evidence for acute infarction or hemorrhage. Assessment and Plan - Plan Ms. Flores is a 77 y/o patient with a history of coronary artery disease, anxiety, atrial fibrillation, chronic obstructive pulmonary disease, chronic pain, congestive heart failure and carotid artery disease status post left carotid endarterectomy by Dr. Marin and Dr. Stoner in 2003 who presented to the ER complaining of left visual field loss. She was found to have left ICA occlusion and the case was discussed between the ER doctor and Dr. Morfin with vascular surgery who recommended admission to [facility] under the hospitalist service. Left eye visual impairment with concern for CVA - evaluated 01/30/18, improved -symptoms have been ongoing for 4 days on presentation -Neurology consulted-appreciate assistance. Recommend increasing Eliquis dose if able to tolerate, optho. consult and statin. -Perform nerve frequent neurochecks, eye sight improved -MRI of head with senescent changes with mild to moderate periventricular ischemic white matter demyelination, no acute infarction or hemorrhage. -tele to monitor for arrhythmias -Pending ophthalmology consult. If cleared can be DCed per neuro. -CT head -> senescent changes w/o acute intracranial abnormality -2D echo with EF 60-65%, bovine mitral valve noted Hx a. fib -Neurology has evaluated patient and recommended Eliquis, started at 2.5mg BID -Per dosing recommendations will increase Eliquis to 5 mg twice daily -Patient can have follow-up BMP as outpatient to make sure creatinine does not increase >1.5 Left carotid artery disease - evaluated 01/30/18 -Patient had a left carotid endarterectomy in 2003 with a bovine patch performed by Dr. Marin and Dr. Stoner -Neck CTA showed heavily calcified aortic arch with occlusion of the left common carotid and left subclavian origins. There was at least moderate to severe stenosis of the right brachiocephalic origin secondary to bulky calcified plaque. -Consult vascular surgery consulted, appreciate assistance. No surgical intervention at this time. Cleared for discharge by vascular once cleared by ophthalmology. CAD History of CHF, unknown dysfunction or EF - evaluated 01/30/18, no acute exacerbation at present time -Patient on hospice for advanced heart disease -[facility] contacted and will follow up with the patient -PRN nitroglycerin and resume home nitro patch -patient unsure of her EF Chronic pain - evaluated 01/30/18, stable -continue home oxycodone Anxiety - 01/30/18, stable -Continue home lorazepam but at the lower as needed dose (0.5 mg) Incidental finding of thyroid nodules -may follow up with an shank skinner as an outpatient if desires Tobacco abuse -Discussed with patient that smoking and is not allowed in the hospital. Offered nicotine patch. DVT prophylaxisEliquis Discussed Condition With: Discussed with patient and nursing staff. Discharge Planning: Discharge once cleared by ophthalmology or if okay per neurology to follow-up with ophthalmology as outpatient.
--- NOTE | 2018-01-31 12:49 | P.PNVS ---
Subjective Subjective/Hospital Course: Left eye vision improving Objective Vital Signs / I&O: Vital Signs 01/30/18 16:00 01/30/18 20:00 01/31/18 00:00 Temperature 98 F 97.8 F 97.9 F Pulse Rate 70 79 65 Respiratory Rate 16 17 17 Blood Pressure 133/82 102/59 L 100/58 L Pulse Oximetry 95 95 94 L 01/31/18 04:00 01/31/18 10:00 Temperature 98.1 F 97.6 F Pulse Rate 62 79 Respiratory Rate 17 16 Blood Pressure 123/67 130/90 Pulse Oximetry 95 95 Intake & Output 01/30/18 01/31/18 01/31/18 18:59 06:59 18:59 Weight 41.8 kg Other: # Voids 4 # Urine Diapers 3 Date of Last Bowel Movement 01/30/18 Physical Exam: No neurological deficits Laboratory Results - last 24 hr 01/30/18 01/31/18 01/31/18 11:09 04:30 04:30 WBC 12.8 H RBC 4.40 Hgb 13.0 Hct 38.6 MCV 87.9 MCH 29.5 MCHC 33.6 RDW 14.9 Plt Count 304 MPV 7.5 Neut % (Auto) 70.8 H Lymph % (Auto) 17.8 [place] % (Auto) 7.6 Eos % (Auto) 3.1 Baso % (Auto) 0.7 Neut # (Auto) 9.1 H Lymph # (Auto) 2.3 [place] # (Auto) 1.0 H Eos # (Auto) 0.4 Baso # (Auto) 0.1 WBC Differential . Differential Comment Auto diff final Sodium 137 Potassium 4.1 D Chloride 101 Carbon Dioxide 31.1 Anion Gap 5 BUN 24 H Creatinine 1.32 H Estimated GFR 39 L Random Glucose 85 Calcium 8.3 L Triglycerides 149 Cholesterol 255 H LDL Cholesterol, Calc 184 H HDL Cholesterol 41.5 Cholesterol/HDL Ratio 6.14 ARGENIS Screen Pos H RPR Nonreactive Impressions Carotid Doppler Study 01/30/18 00:00 CONCLUSION: 1. Right Internal Carotid Artery: Findings indicate <50% stenosis. 2. Left Internal Carotid Artery: Common carotid artery is occluded with retrograde flow in the internal carotid artery. Findings indicate <50% stenosis. 3. Reversal of flow in the left vertebral artery consistent with occlusion of the left subclavian artery origin noted on CT exam. Head MRI 01/30/18 00:00 CONCLUSION: 1. Senescent changes with mild to moderate periventricular ischemic white matter demyelination. 2. No acute abnormality. Specifically, no evidence for acute infarction or hemorrhage. Assessment and Plan - Plan Left common carotid artery occlusion Questionable left carotid stump syndrome Duplex ultrasound reviewed, retrograde flow in the left internal carotid artery with minimal stenosis. Doubt carotid stump syndrome. Symptoms atypical for amaurosis fugax, pending ophthalmology eval Clear with discharge from vascular standpoint when cleared by ophthalmology Left subclavian artery occlusion Asymptomatic No vascular surgery is required at this time [facility]fin [facility] [phone]
[2018-01-31] MEDS: Mirtazapine 15 MG Tablet PO SCH (21:36)
[2018-02-01] MEDS: LORazepam 0.5 MG Tablet PO PRN (01:08)
--- NOTE | 2018-02-01 07:29 | P.PNNEU ---
Subjective Active Medications: Active Medications Acetaminophen (Tylenol) 650 mg PO Q4H PRN PRN Reason: Temp > 100.4 Al Hydroxide/Mg Hydroxide (Milk Of Magnesia Liq) 30 ml PO Q12H PRN PRN Reason: Mild Constipation Albuterol (Duoneb Neb (Prn)) 1 ampul NEB Q2HR NEB PRN PRN Reason: SHORTNESS OF BREATH/WHEEZING Apixaban (Eliquis) 5 mg PO BID [facility] Last Admin: 01/31/18 21:36 Dose: 5 mg Aspirin (Ecotrin) 81 mg PO DAILY [facility] Last Admin: 01/31/18 09:10 Dose: 81 mg Bisacodyl (Dulcolax Supp) 10 mg RECTAL DAILY PRN PRN Reason: severe constipation Furosemide (Lasix) 20 mg PO DAILY [facility] Last Admin: 01/31/18 09:10 Dose: 20 mg Gabapentin (Neurontin) 300 mg PO BID [facility] Last Admin: 01/31/18 21:36 Dose: 300 mg Guaifenesin/Dextromethorphan (Robitussin Dm Liq) 10 ml PO Q4H PRN PRN Reason: COUGH Lorazepam (Ativan) 0.5 mg PO Q4H PRN PRN Reason: ANXIETY Last Admin: 02/01/18 01:08 Dose: 0.5 mg Mirtazapine (Remeron) 15 mg PO HS [facility] Last Admin: 01/31/18 21:36 Dose: 15 mg Nicotine (Habitrol 21 Mg Patch.24 Hr) 1 patch T-DERMAL DAILY [facility] Last Admin: 01/31/18 12:00 Dose: 1 patch Nitroglycerin (Nitro-Dur 0.4 Mg Patch.24 Hr) 1 patch T-DERMAL DAILY [facility] Last Admin: 01/31/18 09:10 Dose: 1 patch Nitroglycerin (Nitrostat Sl) 0.4 mg SL Q5M PRN PRN Reason: CHEST PAIN Ondansetron HCl (Zofran Inj) 4 mg IV.PUSH Q6H PRN PRN Reason: NAUSEA OR VOMITING Oxycodone HCl (Roxicodone) 10 mg PO Q6H PRN PRN Reason: PAIN SCALE 1 TO 10 Last Admin: 01/30/18 15:37 Dose: 10 mg Pantoprazole Sodium (Protonix) 20 mg PO DAILY [facility] Last Admin: 01/31/18 09:10 Dose: 20 mg Potassium Chloride (Kcl) 10 meq PO DAILY [facility] Last Admin: 01/31/18 09:10 Dose: 10 meq Pravastatin Sodium (Pravachol) 40 mg PO [facility] Last Admin: 01/31/18 21:36 Dose: 40 mg Risperidone (Risperdal) 0.5 mg PO HS [facility] Last Admin: 01/31/18 21:36 Dose: 0.5 mg Allergies/Adverse Reactions: Allergies Allergy/AdvReac Type Severity Reaction Status Date / Time No Known Allergies Allergy Verified 01/29/18 13:05 Physical Exam Vital signs: Vital Signs 01/31/18 10:00 01/31/18 12:00 01/31/18 16:20 Temperature 97.6 F 97.8 F 97.3 F L Pulse Rate 79 81 80 Respiratory Rate 16 16 16 Blood Pressure 130/90 100/70 105/70 Pulse Oximetry 95 96 96 01/31/18 20:00 02/01/18 00:00 02/01/18 04:00 Temperature 97.8 F 98 F 97.4 F L Pulse Rate 73 59 L 69 Respiratory Rate 17 18 18 Blood Pressure 113/69 95/58 L 114/62 Pulse Oximetry 94 L 95 96 Intake & Output 01/31/18 02/01/18 02/01/18 18:59 06:59 18:59 Intake Total 1100 / 1100 480 / 480 Output Total 6 / 6 Balance 1094 / 1094 480 / 480 Weight 41.8 kg Intake: Oral 1100 / 1100 480 / 480 Output: Urine 6 / 6 Other: # Voids 4 Date of Last Bowel Movement 01/30/18 Narrative: a and ox3 nl gait still dec vision os Objective Laboratory Results - last 24 hr 01/30/18 11:09 ARGENIS Screen Pos H RPR Nonreactive Review/Management - Review/Management Plan: imp esr 45 but crp only min elevated ldl 184 mri brain neg echo bovine MV on eliquis 2.5 for wt if med team thinks can tolerate 5mg bid i would have them change to that can dc when optho clears needs statin started 02/01/18 on statin if optho can not see her today in house maybe they can see her in office today if her daughter drives over to their office? on 5 bid eliquis
--- NOTE | 2018-02-01 09:30 | P.DS ---
Date of admission: 01/29/18 19:30 Primary care physician: UNKNOWN Brief History from admission: Ms. Flores is a 77 y/o patient with a history of coronary artery disease, anxiety, atrial fibrillation, chronic obstructive pulmonary disease, chronic pain, congestive heart failure and carotid artery disease status post left carotid endarterectomy by Dr. Marin and Dr. Stoner in 2003 who presented to the ER complaining of left visual field loss. She was found to have left ICA occlusion and the case was discussed between the ER doctor and Dr. Morfin with vascular surgery who recommended admission to [facility] under the hospitalist service. The patient is seen in her hospital room. She reports only being able to see shadows with her left eye for 4 days. She reports that she was planning to see her silk hanger as an outpatient about this but decided that she could not wait and went to the emergency room instead. She denies any headaches, eye pain , floaters, discharge from the eye, erythema, or edema. She has had no recent trauma to the eye. She has no unilateral weakness, dysphasia, or speech problems. She denies any recent fever, chills, nausea, vomiting, or diarrhea. The patient was requesting her narcotics and her nurse called me. I verified them on [employer] and recognized the name of the prescribing physician as Arturo Gonzales MD, a hospice physician with [facility]. I contacted [facility] and verified that she is indeed a hospice patient who is on their service for advanced cardiovascular disease. They will be following up with her tomorrow. DS: Medications - Discharge Medications Prescriptions: apixaban [Eliquis] 5 mg PO BID #60 tab gabapentin [Neurontin] 300 mg PO BID #60 cap pravastatin 40 mg PO HS #30 tab DS: Summary Hospital Course: Ms. Flores is a 77 y/o patient with a history of coronary artery disease, anxiety, atrial fibrillation, chronic obstructive pulmonary disease, chronic pain, congestive heart failure and carotid artery disease status post left carotid endarterectomy by Dr. Marin and Dr. Stoner in 2003 who presented to the ER complaining of left visual field loss. Left eye visual impairment with concern for CVA -symptoms have been ongoing for 4 days on presentation -Neurology consulted-appreciate assistance. Recommend increasing Eliquis dose if able to tolerate, optho. consult and statin. -MRI of head with senescent changes with mild to moderate periventricular ischemic white matter demyelination, no acute infarction or hemorrhage. -No arrhythmias on tele noted -Ophthalmology recommended controlling risk factors, follow up as outpatient in 1 month -CT head -> senescent changes w/o acute intracranial abnormality -2D echo with EF 60-65%, bovine mitral valve noted - Vision improved per patient Hx a. fib -Neurology has evaluated patient and recommended Eliquis 5 mg twice daily -Patient can have follow-up BMP as outpatient to make sure creatinine does not increase >1.5 Left carotid artery disease - evaluated 01/30/18 -Patient had a left carotid endarterectomy in 2003 with a bovine patch performed by Dr. Marin and Dr. Stoner -Neck CTA showed heavily calcified aortic arch with occlusion of the left common carotid and left subclavian origins. There was at least moderate to severe stenosis of the right brachiocephalic origin secondary to bulky calcified plaque. -Consult vascular surgery consulted, appreciate assistance. No surgical intervention at this time. Cleared for discharge by vascular surgery. CAD History of CHF, unknown dysfunction or EF - evaluated 01/30/18, no acute exacerbation at present time -Patient on hospice for advanced heart disease -[facility] contacted and will follow up with the patient -PRN nitroglycerin and resume home nitro patch -patient unsure of her EF Chronic pain - evaluated 01/30/18, stable -continue home oxycodone Anxiety - 01/30/18, stable -Continue home lorazepam but at the lower as needed dose (0.5 mg) Incidental finding of thyroid nodules -may follow up with an manager pathology as an outpatient if desires Patient was seen and examined earlier today ambulating in her room in no acute distress. She reports she has been waiting for ophthalmology for evaluation, discussed discharge home once cleared by ophthalmology. She reports her vision is unchanged compared to yesterday and is now able to see out of the left eye although not exactly clearly. She denies any fevers, chills, nausea, vomiting or diarrhea. She voices no other acute concerns at the moment. Is requesting to go home. - Time Spent with Patient Total time spent providing and/or coordinating discharge services: Less than 30 minutes - Quality: VTE Deep Vein Thrombosis/Pulmonary Embolism Present on Admission: No Exam Vital signs: Vital Signs 01/31/18 10:00 01/31/18 12:00 01/31/18 16:20 Temperature 97.6 F 97.8 F 97.3 F L Pulse Rate 79 81 80 Respiratory Rate 16 16 16 Blood Pressure 130/90 100/70 105/70 Pulse Oximetry 95 96 96 01/31/18 20:00 02/01/18 00:00 02/01/18 04:00 Temperature 97.8 F 98 F 97.4 F L Pulse Rate 73 59 L 69 Respiratory Rate 17 18 18 Blood Pressure 113/69 95/58 L 114/62 Pulse Oximetry 94 L 95 96 02/01/18 08:00 Temperature 98.1 F Pulse Rate 70 Respiratory Rate 18 Blood Pressure 131/76 Pulse Oximetry 96 Intake & Output 01/31/18 02/01/18 02/01/18 18:59 06:59 18:59 Intake Total 1100 / 1100 480 / 480 Output Total / Balance 1094 / 1094 480 / 480 Weight 41.8 kg Intake: Oral 1100 / 1100 480 / 480 Output: Urine Other: # Voids 4 Date of Last Bowel Movement 01/30/18 Narrative: GENERAL: Thin, well-developed female in no acute distress. SKIN: Cool and dry. HEAD: Atraumatic. Normocephalic. EYES: No scleral icterus. No injection or drainage. Pupils equal/round and reactive. ENT: Nose without bleeding, purulent drainage. NECK: Trachea midline. CARDIOVASCULAR: Regular rate and rhythm without murmurs, gallops, or rubs. RESPIRATORY: Clear to auscultation. Breath sounds equal bilaterally. No wheezes , rales, or rhonchi. GASTROINTESTINAL: Abdomen soft, non-tender, nondistended. MUSCULOSKELETAL: Extremities without clubbing, cyanosis, or edema. NEUROLOGICAL: Awake and alert. Motor and sensory grossly within normal limits. Normal speech. Results Procedures completed during hospitalization: None Labs on day of discharge: Labs from last 24 hours 01/30/18 11:09 ARGENIS Screen Pos H ARGENIS Titer Pending ARGENIS Pattern Pending ARGENIS Interpretation Pending RPR Nonreactive - Impressions ITS Impressions Carotid Doppler Study 01/30/18 00:00 CONCLUSION: 1. Right Internal Carotid Artery: Findings indicate <50% stenosis. 2. Left Internal Carotid Artery: Common carotid artery is occluded with retrograde flow in the internal carotid artery. Findings indicate <50% stenosis. 3. Reversal of flow in the left vertebral artery consistent with occlusion of the left subclavian artery origin noted on CT exam. Head MRI 01/30/18 00:00 CONCLUSION: 1. Senescent changes with mild to moderate periventricular ischemic white matter demyelination. 2. No acute abnormality. Specifically, no evidence for acute infarction or hemorrhage. Discharge Plan - Discharge Disposition Patient Disposition: 01 Discharge Home - Discharge Condition Condition: Fair - Discharge Order Discharge Orders: Discharge Order (Routine); Ordered 02/01/18 Ordered By: Noemi Alvarez Vascular Surgery Clear for Discharge (Routine); Ordered 02/01/18 Ordered By: Nisa Paz - Physicians Team Primary Care Provider: UNKNOWN, Attending Provider: Krystin Zendejas Other Providers: Caleb Sharma MD ; Sourav Morfin MD ; Denise Gutierrez MD - Rxs /Orders / Referrals /Forms Prescriptions: New apixaban [Eliquis] 5 mg Tablet 5 mg PO BID Qty: 60 RF: 0 gabapentin [Neurontin] 300 mg Capsule 300 mg PO BID Qty: 60 RF: 0 pravastatin 40 mg Tablet 40 mg PO HS Qty: 30 RF: 0 Continue acetaminophen [Tylenol] 325 mg Capsule 650 mg PO DIRECTED aspirin [Aspir-81] 81 mg Tablet,Delayed Release (Dr/Ec) 81 mg PO DAILY furosemide [Lasix] 20 mg Tablet 20 mg PO DAILY ipratropium-albuterol 0.5 mg-3 mg(2.5 mg base)/3 mL Solution For Nebulization 1 Inhalation Q8HR PRN (Reason: Shortness Of Breath) lorazepam 0.5 mg Tablet 1 mg PO Q2HR PRN (Reason: Pain) mirtazapine 15 mg Tablet 15 mg PO HS nitroglycerin [Nitro-Dur] 0.4 mg/hr Patch 24 Hour 1 patch TRANSDERMAL Q12H omeprazole 20 mg Capsule,Delayed Release(Dr/Ec) 20 mg PO DAILY oxycodone 10 mg Tablet 10 mg PO Q6H PRN (Reason: Pain) potassium chloride 10 mEq Capsule, Extended Release 10 meq PO DAILY risperidone 0.25 mg Tablet 0.5 mg PO HS Discontinued albuterol sulfate 1.25 mg/3 mL Solution For Nebulization 1.25 mg INHALATION Q4-6H PRN (Reason: Shortness Of Breath) dextromethorphan-quinidine 10 mL PO Q4HR PRN (Reason: Cough) gabapentin 100 mg Capsule 300 mg PO BID morphine 10 mg Capsule,Extend.Release Pellets 10 mg PO Q1-2H PRN (Reason: Pain) Ambulatory Orders / Order Sets / DME: Basic Metabolic Panel (Routine) Timeframe: 1 Week Location: Determined by Patient Ordered By: Noemi Alvarez Referrals: Denise Gutierrez MD [Physician] - 03/03/18 UNKNOWN, [Primary Care Provider] - See Instructions - Discharge Instructions Patient Printed Instructions: Pravastatin (By mouth), Gabapentin (By mouth), Apixaban (By mouth), Blurred Vision (ED), Eye Pain (GEN)
[2018-02-01] MEDS: Furosemide 20 MG Tablet PO SCH (09:41)
[2018-02-01] MEDS: Gabapentin 300 MG Capsule PO SCH (09:41)
[2018-02-01] MEDS: Pantoprazole Sodium 20 MG DR Tablet PO SCH (09:41)
[2018-02-01 12:26] VITALS: BP 108/55; PULSE 73; RESP 17; TEMP 97.8; O2SAT 95
--- NOTE | 2018-02-01 13:05 | P.CON ---
History of Present Illness Service: Ophthalmology Reason for Consult: left eye vision loss Primary Care Provider: UNKNOWN Chief Complaint: Loss of vision in left eye History of Present Illness: 77 y/o patient with a history of coronary artery disease, atrial fibrillation, chronic obstructive pulmonary disease, congestive heart failure and carotid artery disease status post left carotid endarterectomy by Dr. Marin and Dr. Stoner in 2003 who presented to the ER complaining of left eye vision loss on . She denies any headaches, eye pain, floaters, flashes. ROS for GCA negative. MRI brain - normal. Carotid US <50% stenosis bilateral - vascular recommends no surgery at this time. Echo -> normal left ventricular systolic function with EF 60-65%. Patient denies any significant ocular history. No change in her vision since last week. [facility] - History History Provided By: Patient - Medical History Medical History: Medical History (Last Updated 01/30/18 @ 04:17 by ABENA Martinez) Atrial fibrillation Chronic obstructive pulmonary disease Coronary artery disease Anxiety Chronic pain Congestive heart failure - Surgical History Surgical History: Surgical History (Last Updated 01/30/18 @ 04:07 by ABENA Martinez) History of hysterectomy Onset Date: ~1988 History of left-sided carotid endarterectomy Onset Date: ~10/10/03 History of open heart surgery Onset Date: ~02/26/03 Hx of heart artery stent - Family History Family History: Family History (Last Updated 01/30/18 @ 04:10 by ABENA Martinez) Other No significant family history - Tobacco History Second Hand Smoke Exposure: Yes Tobacco Use In Past 30 Days: Yes Smoking Status: Current every day smoker Tobacco Type: Cigarettes - Alcohol History How Often Do You Have a Drink Containing Alcohol: Never - Substance Use History Substance History: No History of Abuse - Immunization History Hx Influenza Vaccine This Season: No Medications and Allergies Active Medications: Active Medications Acetaminophen (Tylenol) 650 mg PO Q4H PRN PRN Reason: Temp > 100.4 Al Hydroxide/Mg Hydroxide (Milk Of Nik Liwaldo) 30 ml PO Q12H PRN PRN Reason: Mild Constipation Albuterol (Duoneb Neb (Prn)) 1 ampul NEB Q2HR NEB PRN PRN Reason: SHORTNESS OF BREATH/WHEEZING Apixaban (Eliquis) 5 mg PO BID [facility] Last Admin: 02/01/18 09:41 Dose: 5 mg Aspirin (Ecotrin) 81 mg PO DAILY [facility] Last Admin: 02/01/18 09:41 Dose: 81 mg Bisacodyl (Dulcolax Supp) 10 mg RECTAL DAILY PRN PRN Reason: severe constipation Furosemide (Lasix) 20 mg PO DAILY [facility] Last Admin: 02/01/18 09:41 Dose: 20 mg Gabapentin (Neurontin) 300 mg PO BID [facility] Last Admin: 02/01/18 09:41 Dose: 300 mg Guaifenesin/Dextromethorphan (Robitussin Dm Liq) 10 ml PO Q4H PRN PRN Reason: COUGH Lorazepam (Ativan) 0.5 mg PO Q4H PRN PRN Reason: ANXIETY Last Admin: 02/01/18 01:08 Dose: 0.5 mg Mirtazapine (Remeron) 15 mg PO HS [facility] Last Admin: 01/31/18 21:36 Dose: 15 mg Nicotine (Habitrol 21 Mg Patch.24 Hr) 1 patch T-DERMAL DAILY [facility] Last Admin: 02/01/18 09:40 Dose: 1 patch Nitroglycerin (Nitro-Dur 0.4 Mg Patch.24 Hr) 1 patch T-DERMAL DAILY [facility] Last Admin: 02/01/18 09:41 Dose: 1 patch Nitroglycerin (Nitrostat Sl) 0.4 mg SL Q5M PRN PRN Reason: CHEST PAIN Ondansetron HCl (Zofran Inj) 4 mg IV.PUSH Q6H PRN PRN Reason: NAUSEA OR VOMITING Oxycodone HCl (Roxicodone) 10 mg PO Q6H PRN PRN Reason: PAIN SCALE 1 TO 10 Last Admin: 01/30/18 15:37 Dose: 10 mg Pantoprazole Sodium (Protonix) 20 mg PO DAILY [facility] Last Admin: 02/01/18 09:41 Dose: 20 mg Potassium Chloride (Kcl) 10 meq PO DAILY [facility] Last Admin: 01/31/18 09:10 Dose: 10 meq Pravastatin Sodium (Pravachol) 40 mg PO HS [facility] Last Admin: 01/31/18 21:36 Dose: 40 mg Risperidone (Risperdal) 0.5 mg PO HS [facility] Last Admin: 01/31/18 21:36 Dose: 0.5 mg Allergies Allergy/AdvReac Type Severity Reaction Status Date / Time No Known Allergies Allergy Verified 01/29/18 13:05 Home Medications Medication Instructions Recorded Confirmed Type acetaminophen [Tylenol] 650 mg PO DIRECTED 01/29/18 01/29/18 History albuterol sulfate 1.25 mg INHALATION Q4-6H PRN 01/29/18 01/29/18 History aspirin [Aspir-81] 81 mg PO DAILY 01/29/18 01/29/18 History dextromethorphan-quinidine PO Q4HR PRN 01/29/18 History furosemide [Lasix] 20 mg PO DAILY 01/29/18 01/29/18 History gabapentin 300 mg PO BID 01/29/18 01/30/18 History ipratropium-albuterol 1 INHALATION Q8HR PRN 01/29/18 History lorazepam 1 mg PO Q2HR PRN 01/29/18 01/29/18 History mirtazapine 15 mg PO HS 01/29/18 01/29/18 History morphine 10 mg PO Q1-2H PRN 01/29/18 01/29/18 History nitroglycerin [Nitro-Dur] 1 patch TRANSDERMAL Q12H 01/29/18 01/29/18 History omeprazole 20 mg PO DAILY 01/29/18 01/29/18 History oxycodone 10 mg PO Q6H PRN 01/29/18 01/29/18 History potassium chloride 10 meq PO DAILY 01/29/18 01/29/18 History risperidone 0.5 mg PO HS 01/29/18 01/29/18 History Physical Exam Vital signs: Vital Signs 01/31/18 16:20 01/31/18 20:00 02/01/18 00:00 Temperature 97.3 F L 97.8 F 98 F Pulse Rate 80 73 59 L Respiratory Rate 16 17 18 Blood Pressure 105/70 113/69 95/58 L Pulse Oximetry 96 94 L 95 02/01/18 04:00 02/01/18 08:00 02/01/18 12:00 Temperature 97.4 F L 98.1 F 97.8 F Pulse Rate 69 70 73 Respiratory Rate 18 18 17 Blood Pressure 114/62 131/76 108/55 L Pulse Oximetry 96 96 95 Intake & Output 01/31/18 02/01/18 02/01/18 18:59 06:59 18:59 Intake Total 1100 / 1100 480 / 480 Output Total 6 / 6 Balance 1094 / 1094 480 / 480 Weight 41.8 kg Intake: Oral 1100 / 1100 480 / 480 Output: Urine Other: # Voids 4 Date of Last Bowel Movement 01/30/18 - Constitutional agitated - Detailed Eye Exam Comments: Va sc at near OD 20/50, OS bare HM EOM full OU, no diplopia CVF full OD, unable OS Pupils 2-1, +APD OS IOP normal to palpation OU Anterior exam OD - normal eyelid, C/S W&Q, K clear, AC deep, pupil round, cataract OS - normal eyelid, C/S W&Q, K clear, AC deep, pupil round, cataract Dilated exam OD - ON s/p/f, ves normal, vit clear, retina flat OS - ON s/p/f, ves normal, vit clear, retina flat, CRAO Results - Labs CBC & Chem 7: 01/31/18 04:30 01/31/18 04:30 Assessment and Plan - Assessment (1) Central retinal artery occlusion of left eye Code(s): H34.12 - Central retinal artery occlusion, left eye Status: Acute Plan: Negative ROS for GCA - ESR 45, CRP 1.48. Carotid doppler/Echo done. Control risk factors - blood pressure, lipids, etc. Follow up as outpatient in 1 month - at risk for developing neovascularization in the eye.
[2018-02-01] MEDS: Potassium Chloride 10 MEQ ER Capsule PO SCH (17:40)
== END 2018-02-01 18:05 | disposition hospice, home (50) ==
LOC: NEDDLT 12:41 → N06 19:30
PROVIDERS: ADMIT Hospitalist; ATTEND Hospitalist